=== PATIENT | female | born 1955 | race Caucasian/White ===

== ENCOUNTER 2017-07-01 05:28 | Emergency (ER) | payer MEDICAID ==
[2017-07-01 07:26] LABS: ALKALINE PHOSPHATASE 117 U/L (46-116); ALT/SGPT 30 U/L (14-59); AMYLASE 50 U/L (25-115); AST/SGOT 18 U/L (15-37); BILIRUBIN TOTAL 0.4 mg/dL (0.20-1.00); CARBON DIOXIDE 28.2 mmol/L (21-32); CHLORIDE SERUM 107 mmol/L (98-107); CREATININE SERUM 0.6 mg/dL (0.6-1.0); GFR1 > 60 mL/min; GLUCOSE SERUM 140 mg/dL (74-106); LIPASE 153 IU/L (73-393); POTASSIUM SERUM 4.3 mmol/L (3.5-5.1); SODIUM SERUM 138 mmol/L (136-145); TOTAL PROTEIN, SERUM 7.6 g/dL (6.4-8.2)
[2017-07-01 07:30] LABS: CALCIUM 9.1 mg/dL (8.5-10.1)
[2017-07-01 07:31] LABS: ALBUMIN 3.3 g/dL (3.4-5.0)
[2017-07-01 07:42] LABS: BASOPHIL % 0.4 % (0-2); PLATELET COUNT 211 x10^3mcL (130-400); RED CELL DISTRIBUTION WIDTH 13.3 % (11.5-14.5)
[2017-07-01 08:30] LABS: UA SPECIFIC GRAVITY 1.025 (1.005-1.035)
[2017-07-01 08:31] LABS: microscopic required? YES; urine erythrocyte NEGATIVE (NEGATIVE)
[2017-07-01 10:21] VITALS: BP 103/43
== END 2017-07-01 10:21 | disposition home or self-care (01) ==
LOC: ED 05:28
PROVIDERS: Emergency Medicine
DX: K57.30 Diverticulosis of large intestine without perforation or abscess without bleeding (principal); R82.71 Bacteriuria
CPT/HCPCS: 83880; J1885; Q9967

== ENCOUNTER 2019-05-16 00:13 | Emergency (ER) | payer MEDICAID ==
[~2019-05-16] VITALS: Ht 154.9 cm; Wt 86.2 kg
[2019-05-16 00:20] VITALS: Ht 154.9 cm; Wt 86.2 kg
[2019-05-16 01:43] VITALS: BP 107/54
== END 2019-05-16 02:12 | disposition home or self-care (01) ==
LOC: ED 00:13
DX: F41.1 Generalized anxiety disorder (principal); I25.2 Old myocardial infarction; Z98.890 Other specified postprocedural states
CPT/HCPCS: 82962; J2060; Q0162